=== PATIENT | female | born 1945 | race Caucasian/White ===

== ENCOUNTER 2018-06-26 14:32 | Observation (INO) | payer MEDICARE ==
[2018-06-26 14:59] LABS: #Eosinphils 0.1 thou/uL (0.0-0.7); #Lymphocytes 1.3 thou/uL (1.20-3.40); #Monocytes 0.3 thou/uL (0.11-0.59); #Neutrophils 2.2 thou/uL (1.40-6.50); %Basophils 0.4 % (0.0-1.0); %Monocytes 8.6 % (0.0-10.0); Mean Corpuscular HGB CONC 32.3 g/dL (32.0-36.0); Mean Corpuscular Hemoglobin 28.6 pg (27.0-31.0); Mean Corpuscular Volume 88.8 fL (78.0-98.0); Platelet Count 168 thou/uL (130-400); RBC Distribution Width 12.9 % (11.5-14.5); Red Blood Cell (RBC) Count 4.52 mill/uL (4.20-5.40)
[2018-06-26 15:02] LABS: Analyzer IN Cardio ER; CO2 Tension 43.9 mmHg (35.0-45.0); Calcium, Ionized 1.18 mmol/L (1.12-1.30); Carboxyhemoglobin (COHb) 0.7 gm% (0.0-3.0); Hemoglobin (Hb) 13.5 g/dL (12.0-16.0); O2 Tension (PaO2) 58.8 mmHg (> 70.0); Puncture Site LRA; pH, Arterial 7.42 (7.35-7.45)
[2018-06-26 15:03] LABS: ALV-art Gradient 36.055 (0-20)
[2018-06-26 15:19] LABS: ALT (SGPT) 12 U/L (8-55); AST (SGOT) 14 U/L (5-34); Albumin 3.6 g/dL (3.4-4.8); Alkaline Phosphatase 87 U/L (40-150); Anion Gap 13 mmol/L (10-20); BUN (Urea Nitrogen) 13 mg/dL (9.8-20.1); Bilirubin, Total 0.8 mg/dL (0.2-1.2); CK (CPK) 54 U/L (29-168); Calc. Creatinine Clearance 0 mL/min (70-130); Calcium 9.4 mg/dL (7.8-10.44); Carbon Dioxide 26 mmol/L (23-31); Chloride 104 mmol/L (98-107); Estimated GFR-MDRD 64; Globulin 3.6 g/dL (2.4-3.5); Glucose 96 mg/dL (83-110); Potassium 3.4 mmol/L (3.5-5.1); Protein, Total 7.2 g/dL (6.0-8.3); Sodium 140 mmol/L (136-145)
[2018-06-26 15:23] LABS: CKMB 0.6 ng/mL (0-6.6); Troponin I Less than 0.010 ng/mL (< 0.028)
--- NOTE | 2018-06-26 15:35 | RAD ---
CHEST 1 VIEW: History Chest pain, syncope. COMPARISON: Radiograph 06/01/2016. FINDINGS: Mild fullness of the right hilum. Left lung is relatively clear. Mild tortuosity of the aorta. No pneumothorax. IMPRESSION: Mild fullness in the right hilum. This may be sequelae of distended pulmonary vessels versus a less likely underlying mass. A nonemergent followup CT of the chest may be beneficial. POS: KYRIE
--- NOTE | 2018-06-26 15:38 | CT ---
CT BRAIN NONCONTRAST: HISTORY: A 72-year-old female with dizziness and head injury due to fall. FINDINGS: There is no midline shift or any other mass effect. There is no evidence of acute intracranial hemor rhage, large cortical infarct, obstructive hydrocephalus, or extraaxial fluid collection. The calvar ium is intact. There was a lacunar infarction involving the upper posterior aspect of the left basal ganglia, left periventricular white matter, and perhaps a portion of the caudate, that was demonstra katrina on the MRI of 03/02/2015. It has involuted, and appears less conspicuous than on the CT of 2015. There is diffuse, age-appropriate brain parenchyma volume loss. IMPRESSION: 1. No acute intracranial findings. 2. Tiny old lacunar infarction in the left corpus striatum. ashanti Mcallister POS: KYRIE
--- NOTE | 2018-06-26 16:36 | HP ---
PRIMARY CARE PHYSICIAN: Dr. Michelle Aiken. REASON FOR ADMISSION: Syncope. HISTORY OF PRESENT ILLNESS: A 72-year-old female who has underlying history of hypertension, dyslipi demia on chronic anticoagulation therapy, who was experiencing dizziness recurrently for about 1 week . She fell down on Friday and injured her arm and hip. She only got bruits, but she did not have an y bone pain. She was able to walk without any problem and she was able to use all her upper and lowe r extremity, but she was feeling sore from fall. The patient did not have any chest pain, palpitatio n or shortness of breath. Patient reports that because she was experiencing recurrent dizziness that is why she saw Dr. Loo few days ago and the patient was planned for outpatient stress test and echo cardiography. Patient denies any lower extremity edema or calf tenderness. She denies any pleuritic chest pain. She denies any shortness of breath. She denies any fever or chills. She denies any bl ackout type of vision; however, she denies any tinnitus or vertigo symptoms. REVIEW OF SYSTEMS: The following complete review of systems was negative, unless otherwise mentioned in the HPI or below: Constitutional: Weight loss or gain, ability to conduct usual activities. Sk in: Rash, itching. Eyes: Double vision, pain. ENT/Mouth: Nose bleeding, neck stiffness, pain, te nderness. Cardiovascular: Palpitations, dyspnea on exertion, orthopnea. Respiratory: Shortness of breath, wheezing, cough, hemoptysis, fever or night sweats. Gastrointestinal: Poor appetite, abdom inal pain, heartburn, nausea, vomiting, constipation, or diarrhea. Genitourinary: Urgency, frequenc y, dysuria, nocturia. Musculoskeletal: Pain, swelling. Neurologic/Psychiatric: Anxiety, depressio n. Allergy/Immunologic: Skin rash, bleeding tendency. Please see my HPI for pertinent positive and negative. All other review of systems reviewed and nega tive except as mentioned in the HPI. PAST MEDICAL HISTORY: Paroxysmal atrial fibrillation, chronic anticoagulation, history of ablation i n 2014, hypertension, history of CVA with right-sided weakness, dyslipidemia, coronary artery disease with stent placement. PAST SURGICAL HISTORY: Cardiac catheterization with stent placement, ablation for atrial fibrillatio n, bilateral eye surgery, bladder sling surgery, hysterectomy. PAST PSYCHIATRIC HISTORY: Reviewed and negative. SOCIAL HISTORY: Patient lives at home. No history of tobacco, alcohol or illicit drug abuse. EMERGENCY ROOM COURSE: Patient has received aspirin and IV fluid. FAMILY HISTORY: Hypertension, heart disease runs among several family members. ALLERGIES: No known drug allergy. CURRENT HOME MEDICATIONS: Prinzide 20/25 one tablet p.o. daily, Lipitor 20 mg p.o. at bedtime, Eliqu is 5 mg twice daily, amlodipine 5 mg p.o. daily, aspirin 81 mg p.o. daily. PHYSICAL EXAMINATION: VITAL SIGNS: On arrival, blood pressure 137/80, pulse 79, respiratory rate 18, saturation 93% on brett m air, temperature 98.1, weight 105.2 kilograms. GENERAL: Patient is currently alert, awake, no obvious acute distress. HEAD: Normocephalic, atraumatic. EYES: Pupils round, reactive to light. Extraocular muscle intact. ENT: Oropharynx within normal limits. Moist mucous membranes, no oral lesion, no pharyngeal erythem a, no exudate. NECK: Supple, no JVD, no thyromegaly, no carotid bruit. LUNGS: Clear to auscultation without any rhonchi or rales. CARDIAC: S1, S2 regular without any murmur. ABDOMEN: Soft and benign without any tenderness, obesity present. EXTREMITIES: No edema. Patient does have bruise on the left arm as well as right thigh. Lower extr emity: No edema. Good distal pulsation. NEUROLOGIC: Nonfocal examination. Cerebellar sign normal. Planter bilateral flexor. PSYCHIATRIC: Normal affect. SKIN: No skin rash other than bruits. SIGNIFICANT LABORATORY DATA: EKG showing normal sinus rhythm, atrial premature complexes. CT brain based on my review, old infarct in the left side without any new finding. Chest x-ray based on my re view, no acute cardiopulmonary process. CBC: WBC 4.0, hemoglobin 13.0, platelet 168. D-dimer 0.30. ABG: The pH 7.42, CO2 of 43.9, O2 of 58.8, saturation 91.5. BMP: Sodium 140, potassium 3.4, chlo ride 104, carbon dioxide 26, BUN 13, creatinine 0.87, glucose 96, calcium 9.4. LFT: AST 14, ALT 12, alkaline phosphatase 87, albumin 3.6. Cardiac enzymes negative. BNP 75.1, lipase 18. Prolactin 14 .1. ASSESSMENT: 1. Syncope, unexplained. 2. Recurrent dizziness. 3. Paroxysmal atrial fibrillation. 4. Coronary artery disease with stent. 5. Chronic anticoagulation with Eliquis. 6. Dyslipidemia. 7. Hypertension. 8. Obesity. PLAN: 1. Observation to telemetry floor, orthostatic vitals, echocardiography, pharmacological stress test , lipid profile, TSH, and random cortisol testing tomorrow morning. Resume patient's home medication . 2. DVT prophylaxis not needed because the patient is already on Eliquis therapy. 3. Gastrointestinal prophylaxis. Pepcid 20 mg p.o. b.i.d. 4. Code status: The patient is FULL CODE. Patient's daughter is surrogate decision maker. Disposition plan based on clinical course. We will also rule out acute coronary syndrome with serial cardiac enzymes. Plan of care discussed with the patient's family member at bedside in the emergenc y room.
[2018-06-26] MEDS ORDERED: Ondansetron ODT 4 MG TAB SL PRN (16:46)
[2018-06-26] MEDS ORDERED: Ondansetron PF 4 MG/2 ML Vial IVP PRN ×2 (16:46→17:11)
[2018-06-26 16:55] VITALS: BMI 41.6
[2018-06-26] MEDS ORDERED: Nitroglycerin 0.4 MG TAB (25 Tab Bottle) SL PRN (17:11)
[2018-06-26] MEDS ORDERED: HYDROcodone/Acetaminophen 5/325 mg Tablet PO PRN (17:11)
[2018-06-26] MEDS ORDERED: Ondansetron ODT 4 MG TAB PO PRN (17:11)
[2018-06-26] MEDS ORDERED: Sodium Chloride 0.65% Nasal 44 ML BOT EA NARE PRN (17:11)
[2018-06-26] MEDS ORDERED: Calcium Carbonate 500 MG ChewTAB PO PRN (17:11)
[2018-06-26] MEDS ORDERED: Artificial Tear Sol 15 ML BOT EA EYE PRN (17:11)
[2018-06-26] MEDS ORDERED: Bisacodyl 5 MG TAB PO PRN (17:11)
[2018-06-26] MEDS ORDERED: Acetaminophen 325 MG TAB PO PRN (17:11)
[2018-06-26] MEDS ORDERED: Bisacodyl 10 MG SUPP PR PRN (17:11)
[2018-06-26] MEDS ORDERED: hydrALAZINE 20 MG/ML VIAL SLOW IVP PRN (17:11)
[2018-06-26] MEDS ORDERED: Eucerin (Mineral Oil/Petrolatum,White) 30 gm Jar TOP PRN (17:11)
[2018-06-26] MEDS ORDERED: Diabetic Tussin 200 MG/10 ML UDCUP PO PRN (17:11)
[2018-06-26] MEDS ORDERED: Loperamide HCl 2 MG CAP PO PRN (17:11)
[2018-06-26] MEDS ORDERED: Senokot S 8.6-50 MG TAB PO PRN (17:11)
[2018-06-26] MEDS ORDERED: Zolpidem Tartrate 5 MG TAB PO PRN (17:11)
[2018-06-26] MEDS ORDERED: Cepastat Lozenges 1 LOZ PO PRN (17:11)
[2018-06-26 19:01] LABS: Troponin I Less than 0.010 ng/mL (< 0.028)
[2018-06-26] MEDS: Famotidine 20 MG TAB PO SCH (20:10)
[2018-06-26] MEDS: Apixaban 5 MG TAB PO SCH (20:10)
[2018-06-26] MEDS: Atorvastatin Calcium 20 MG TAB PO SCH (20:11)
[2018-06-26] MEDS: Meclizine HCl 25 MG TAB PO PRN (21:45)
[2018-06-26 22:51] LABS: Troponin I Less than 0.010 ng/mL (< 0.028)
[2018-06-27 05:54] LABS: Cardiac Risk 3.9 (Less than 4.5)
[2018-06-27] MEDS: Meclizine HCl 25 MG TAB PO PRN (06:45)
[2018-06-27] MEDS ORDERED: ADENOSINE 60 MG/20 ML VIAL ONE (08:38)
--- NOTE | 2018-06-27 10:14 | PDOC.PN ---
- Subjective Encounter Start Date: 06/27/18 Encounter Start Time: 07:20 -: old records requested/rev c/o dizziness, monitor is OK, no chest pain - Objective Resuscitation Status: Resuscitation Status FULL:Full Resuscitation MAR Reviewed: Yes Vital Signs & Weight: Vital Signs (12 hours) Temp Pulse Resp BP BP BP BP 06/27/18 08:00 98.2 F 73 16 156/85 H 166/75 H 132/62 06/27/18 03:00 97.9 F 78 18 163/74 H 06/26/18 23:08 98.4 F 78 18 145/65 H Pulse Ox 06/27/18 08:00 94 L 06/27/18 03:00 96 06/26/18 23:08 93 L Weight Weight 233 lb 8 oz I&O: 06/26/18 06/27/18 06/28/18 06:59 06:59 06:59 Intake Total 830 Output Total 1125 Balance -295 Result Diagrams: 06/26/18 14:50 06/26/18 14:50 Additional Labs: Accuchecks 06/26/18 14:50 POC Glucose 90 EKG Reviewed by me: Yes (nsr) Phys Exam - Physical Examination Constitutional: NAD HEENT: PERRLA, moist MMs, sclera anicteric Neck: no JVD, supple Respiratory: no wheezing, no rales, no rhonchi Cardiovascular: RRR, no significant murmur, no rub Gastrointestinal: soft, non-tender, no distention, positive bowel sounds Musculoskeletal: no edema, pulses present Neurological: non-focal, normal sensation, moves all 4 limbs Psychiatric: normal affect, A&O x 3 Skin: no rash, normal turgor Dx/Plan (1) Dizziness and giddiness Code(s): R42 - DIZZINESS AND GIDDINESS Status: Acute (2) Hypokalemia Code(s): E87.6 - HYPOKALEMIA Status: Acute (3) Syncope Code(s): R55 - SYNCOPE AND COLLAPSE Status: Acute (4) Chronic anticoagulation Code(s): Z79.01 - [employer] (CURRENT) USE OF ANTICOAGULANTS Status: Chronic (5) Dyslipidemia Code(s): E78.5 - HYPERLIPIDEMIA, UNSPECIFIED Status: Chronic (6) Hypertension Code(s): I10 - ESSENTIAL (PRIMARY) HYPERTENSION Status: Chronic (7) Obesity, morbid, BMI 40.0-49.9 Code(s): E66.01 - MORBID (SEVERE) OBESITY DUE TO EXCESS CALORIES Status: Chronic (8) PAF (paroxysmal atrial fibrillation) Code(s): I48.0 - PAROXYSMAL ATRIAL FIBRILLATION Status: Chronic - Plan cont current plan of care * today stress test and echo, if negative will consider DC * she may need holter monitoring when she follow up with cardiology * if no cardiac etiolgy, then ENT evaluation * still suspecting orthostatic hypertension, will need adjustment in her BP meds * medication reviewed as below * symptomatic treatment Review of Systems - Review of Systems ENT: negative: Ear Pain, Ear Discharge, Nose Pain, Nose Discharge, Nose Congestion, Mouth Pain, Mouth Swelling, Throat Pain, Throat Swelling, Other Respiratory: negative: Cough, Dry, Shortness of Breath, Hemoptysis, SOB with Excertion, Pleuritic Pain, Sputum, Wheezing Cardiovascular: light headedness. negative: chest pain, palpitations, orthopnea , paroxysmal nocturnal dyspnea, edema, other Gastrointestinal: negative: Nausea, Vomiting, Abdominal Pain, Diarrhea, Constipation, Melena, Hematochezia, Other Genitourinary: negative: Dysuria, Frequency, Incontinence, Hematuria, Retention , Other Musculoskeletal: negative: Neck Pain, Shoulder Pain, Arm Pain, Back Pain, Hand Pain, Leg Pain, Foot Pain, Other Skin: negative: Rash, Lesions, Rui, Bruising, Other - Medications/Allergies Allergies/Adverse Reactions: Allergies Allergy/AdvReac Type Severity Reaction Status Date / Time No Known Allergies Allergy Verified 06/26/18 16:51 Medications: Current Medications Acetaminophen (Tylenol) 650 mg PO Q4H PRN PRN Reason: Headache/Fever/Mild Pain (1-3) Hydrocodone Bitart/Acetaminophen ([place] 5/325) 1 tab PO Q4H PRN PRN Reason: Moderate Pain (4-6) Amlodipine Besylate (Norvasc) 5 mg PO DAILY [facility] Apixaban (Eliquis) 5 mg PO BID [facility] Last Admin: 06/26/18 20:10 Dose: 5 mg Artificial Tears (Tears Renewed 15ml Bottle) 2 drop EA EYE PRN PRN PRN Reason: Dry Eyes Aspirin (Aspirin Chewable) 81 mg PO DAILY [facility] Atorvastatin Calcium (Lipitor) 20 mg PO HS [facility] Last Admin: 06/26/18 20:11 Dose: 20 mg Bisacodyl (Dulcolax) 10 mg PO DAILYPRN PRN PRN Reason: Constipation Bisacodyl (Dulcolax) 10 mg [place] DAILYPRN PRN PRN Reason: Constipation Calcium Carbonate (Tums) 1,000 mg PO Q4H PRN PRN Reason: Heartburn or Indigestion Famotidine (Pepcid) 20 mg PO BID [facility] Last Admin: 06/26/18 20:10 Dose: 20 mg Guaifenesin (Robitussin Sf) 200 mg PO Q4H PRN PRN Reason: Cough Hydralazine HCl (Apresoline) 10 mg SLOW IVP Q4H PRN PRN Reason: SBP > 180 and HR < 70 Loperamide HCl (Imodium) 2 mg PO PRN PRN PRN Reason: Diarrhea/Loose Stools Meclizine HCl (Antivert) 25 mg PO Q8H PRN PRN Reason: Dizziness Last Admin: 06/27/18 06:45 Dose: 25 mg Mineral Oil/White Petrolatum (Eucerin Cream) 0 gm TOP BIDPRN PRN PRN Reason: Dry Skin Nitroglycerin (Nitrostat) 0.4 mg SL Q5MIN PRN PRN Reason: Chest Pain Ondansetron HCl (Zofran Odt) 4 mg PO Q6H PRN PRN Reason: Nausea/Vomiting Ondansetron HCl (Zofran) 4 mg IVP Q6H PRN PRN Reason: Nausea/Vomiting Senna/Docusate Sodium (Senokot S) 2 tab PO BID PRN PRN Reason: Constipation Sodium Chloride ([place] Nasal [employer] 0.65%) 0 ml EA NARE QIDPRN PRN PRN Reason: Nasal Congestion Throat Lozenges (Cepastat Lozenges) 1 angeline PO Q2H PRN PRN Reason: Sore Throat Zolpidem Tartrate (Ambien) 5 mg PO HSPRN PRN PRN Reason: Insomnia
[2018-06-27] MEDS: Famotidine 20 MG TAB PO SCH ×2 (10:41→20:44)
[2018-06-27] MEDS: Amlodipine 5 MG TAB PO SCH (10:42)
[2018-06-27] MEDS: Apixaban 5 MG TAB PO SCH ×2 (10:42→20:44)
[2018-06-27 12:58] LABS: Bilirubin Negative (Negative); Blood, Urine Negative (Negative); Clarity CLOUDY (Clear); Glucose, Urine (Dipstick) Negative (Negative); Leukocyte Large (Negative); Nitrite Negative (Negative); Protein, Urine (Dipstick) Negative (Neg-Trace); Specific Gravity, Urine 1.016 (1.002-1.036)
[2018-06-27] MEDS ORDERED: Ciprofloxacin 500 MG TAB PO SCH (13:45)
[2018-06-27] MEDS: Carvedilol 3.125 MG TAB PO SCH (17:20)
--- NOTE | 2018-06-27 19:30 | CON ---
DATE OF CONSULTATION: 06/27/2018 CARDIOLOGY CONSULTATION INDICATION FOR CONSULTATION: A 72-year-old female with a history of lightheadedness, but no naomy sy ncopal episodes. She does have history of coronary artery disease, hypertension, and atrial fibrilla tion intermittently. She apparently fell on Friday. She became dizzy and fell. Her son helped her to pick her up and then yesterday she had another fall and has presented to the hospital. She had so me ecchymosis and bruising on the right side over her hip area and also in the left flank area. She has some bruising and also on the left arm. She has bruising, but she denied any naomy syncopal epis odes. She had an episode similar to this back in 2014 and was treated with medications which I belie ve was meclizine, but cannot determine by the medical records from the discharge summary what medicin e she was given, but she said that resolved her dizziness and she actually had some medicines at home , but she thought the medicine was too old. At this time, she has been placed back on meclizine, but has not had any benefit yet. She still continues to have some lightheadedness when she gets up out of the bed. Her orthostatics do not indicate that she has any orthostatic hypotension. She has douglas ed any chest pain or shortness of breath. She has no other significant complaints except for the diz ziness with lightheadedness. She had an echocardiogram performed which shows a normal ejection fract ion. There is no indication she has any cardiomyopathy. She does have mild mitral and tricuspid cristobal ve regurgitation. She also has left atrial dilatation, but no significant structural abnormalities f rom a valvular standpoint were noted. She has evidence of mild aortic valve sclerosis and some mild mitral annular calcifications. She has remained in sinus rhythm with occasional PACs and there has b een no indication that her dizziness was cause from a cardiac standpoint unless she perhaps has some mild orthostatic hypotension, but this has not been found to be the case. As far as her past medical history, social history, family history, review of systems, allergies and medications, please refer the notes dictated by the nurse practitioner. PHYSICAL EXAMINATION: GENERAL: Reveals a very pleasant, well-developed, well-nourished female. She is in no acute distres s at this time. She still says she does have some dizziness if she tries to get out of bed, but at t his time, she is sitting on the side of the bed and she has no symptoms at this time. VITAL SIGNS: Showed blood pressure 133/80, heart rate is 80 and regular, respiratory rate 16. She i s afebrile and O2 saturations 94%. HEENT: Shows the head to be normocephalic and atraumatic. Carotid pulses are present. There were n o bruits noted. There is no JVD. The thyroid is not enlarged. Her oral mucosa was pink and moist. CHEST: Clear. There are no rales, rhonchi or wheezing. CARDIOVASCULAR: Exam reveals a regular rate and rhythm with occasional ectopy. I did not hear any g ross murmurs, heaves, thrills, bruits or rubs. ABDOMEN: Soft, nontender. Positive bowel sounds are present. She has obesity. EXTREMITIES: Showed no clubbing, cyanosis or edema. Her pulses are present. NEUROLOGIC: She appears to be intact. I cannot elicit any gross focal motor deficits. LABORATORY DATA: Laboratory data also is within normal limits. Her WBC is 4.0. The hemoglobin is 1 3.0. The potassium is 3.4. Sodium is 140. Her creatinine is 0.87. Her cardiac enzymes are negativ e. Her blood sugar is 90. Her LDL level was 71. IMPRESSION: 1. Elderly female with dizziness of uncertain etiology, does not appear to be cardiac in nature. He r blood pressure has remained stable. She does not have any valvular disease nor any cardiomyopathy that may account for this and there have been no arrhythmias noted. We will see whether or not the m eclizine will improve her symptoms. 2. History of coronary artery disease. She is status post angioplasty and stent placement appears t o be stable. She denied any symptoms. Her EKG does not indicate any ischemia. Cardiac enzymes are negative. Her echocardiogram shows a normal ejection fraction. 3. History of hypercholesterolemia. She will continue on her statin medications. She is taking pola rvastatin 20 mg a day. She has been on oral anticoagulation due to her history of intermittent atria l fibrillation. I would continue this medication. If she continues to have significant falls, we vernell banks need to stop the medication, but I will try to determine whether or not or why she is having the di zziness and see if we can correct this problem. She will be at increased risk of having a CVA should she stopped the medications. She has had ablation in the past and if we need to, then we will stop the anticoagulation and hopefully she can be suppressed with just perhaps beta blockers or calcium bl ockers for atrial fibrillation. Also did not see that she is on a beta casper and given her history of coronary artery disease, this may be advantageous to start her on low dose of beta blockers if sh e is able to tolerate the medication. Otherwise, this also may help some with the dizziness should t his be due to orthostatic hypotension.
[2018-06-27] MEDS: Ciprofloxacin 500 MG TAB PO SCH (20:44)
[2018-06-27] MEDS: Atorvastatin Calcium 20 MG TAB PO SCH (20:44)
[2018-06-28] MEDS: Ciprofloxacin 500 MG TAB PO SCH (07:14)
[2018-06-28 08:01] VITALS: TEMP 98.2
[2018-06-28] MEDS: Amlodipine 5 MG TAB PO SCH (08:14)
[2018-06-28] MEDS: Apixaban 5 MG TAB PO SCH (08:14)
[2018-06-28] MEDS: Carvedilol 3.125 MG TAB PO SCH (08:15)
[2018-06-28] MEDS: Famotidine 20 MG TAB PO SCH (08:15)
--- NOTE | 2018-06-28 09:54 | PDOC.PN ---
- Subjective Encounter Start Date: 06/28/18 Encounter Start Time: 07:15 Patient seen and examined. No new complaints. No overnight events - Objective Resuscitation Status: Resuscitation Status FULL:Full Resuscitation MAR Reviewed: Yes Vital Signs & Weight: Vital Signs (12 hours) Temp Pulse Resp BP BP Pulse Ox 06/28/18 07:24 98.2 F 61 18 151/81 H 95 06/28/18 03:50 98.6 F 73 18 144/72 H 96 06/27/18 23:50 98 F 72 18 123/63 95 Weight Weight 233 lb 8 oz I&O: 06/27/18 06/28/18 06/29/18 06:59 06:59 06:59 Intake Total 830 1200 Output Total 1125 Balance -295 1200 Result Diagrams: 06/26/18 14:50 06/26/18 14:50 Radiology Reviewed by me: Yes EKG Reviewed by me: Yes Phys Exam - Physical Examination Constitutional: NAD HEENT: PERRLA, moist MMs, sclera anicteric Neck: no JVD, supple Respiratory: no wheezing, no rales, no rhonchi Cardiovascular: RRR, no significant murmur, no rub Gastrointestinal: soft, non-tender, no distention, positive bowel sounds Musculoskeletal: no edema, pulses present Neurological: non-focal, normal sensation, moves all 4 limbs Psychiatric: normal affect, A&O x 3 Skin: no rash, normal turgor Dx/Plan (1) Dizziness and giddiness Code(s): R42 - DIZZINESS AND GIDDINESS Status: Acute (2) Hypokalemia Code(s): E87.6 - HYPOKALEMIA Status: Acute (3) Syncope Code(s): R55 - SYNCOPE AND COLLAPSE Status: Acute (4) Chronic anticoagulation Code(s): Z79.01 - SNF (CURRENT) USE OF ANTICOAGULANTS Status: Chronic (5) Dyslipidemia Code(s): E78.5 - HYPERLIPIDEMIA, UNSPECIFIED Status: Chronic (6) Hypertension Code(s): I10 - ESSENTIAL (PRIMARY) HYPERTENSION Status: Chronic (7) Obesity, morbid, BMI 40.0-49.9 Code(s): E66.01 - MORBID (SEVERE) OBESITY DUE TO EXCESS CALORIES Status: Chronic (8) PAF (paroxysmal atrial fibrillation) Code(s): I48.0 - PAROXYSMAL ATRIAL FIBRILLATION Status: Chronic (9) UTI (urinary tract infection) Status: Acute - Plan cont current plan of care, plan discussed w/ family, continue antibiotics * medication reviewed as below * symptomatic treatment * will dc if stress test negative. Review of Systems - Review of Systems ENT: negative: Ear Pain, Ear Discharge, Nose Pain, Nose Discharge, Nose Congestion, Mouth Pain, Mouth Swelling, Throat Pain, Throat Swelling, Other Respiratory: negative: Cough, Dry, Shortness of Breath, Hemoptysis, SOB with Excertion, Pleuritic Pain, Sputum, Wheezing Cardiovascular: negative: chest pain, palpitations, orthopnea, paroxysmal nocturnal dyspnea, edema, light headedness, other Gastrointestinal: negative: Nausea, Vomiting, Abdominal Pain, Diarrhea, Constipation, Melena, Hematochezia, Other Genitourinary: negative: Dysuria, Frequency, Incontinence, Hematuria, Retention , Other Musculoskeletal: negative: Neck Pain, Shoulder Pain, Arm Pain, Back Pain, Hand Pain, Leg Pain, Foot Pain, Other Skin: negative: Rash, Lesions, Rui, Bruising, Other - Medications/Allergies Allergies/Adverse Reactions: Allergies Allergy/AdvReac Type Severity Reaction Status Date / Time No Known Allergies Allergy Verified 06/26/18 16:51 Medications: Current Medications Acetaminophen (Tylenol) 650 mg PO Q4H PRN PRN Reason: Headache/Fever/Mild Pain (1-3) Hydrocodone Bitart/Acetaminophen ([place] 5/325) 1 tab PO Q4H PRN PRN Reason: Moderate Pain (4-6) Amlodipine Besylate (Norvasc) 5 mg PO DAILY [facility] Last Admin: 06/28/18 08:14 Dose: 5 mg Apixaban (Eliquis) 5 mg PO BID [facility] Last Admin: 06/28/18 08:14 Dose: 5 mg Artificial Tears (Tears Renewed 15ml Bottle) 2 drop EA EYE PRN PRN PRN Reason: Dry Eyes Aspirin (Aspirin Chewable) 81 mg PO DAILY [facility] Last Admin: 06/28/18 08:14 Dose: 81 mg Atorvastatin Calcium (Lipitor) 20 mg PO HS [facility] Last Admin: 06/27/18 20:44 Dose: 20 mg Bisacodyl (Dulcolax) 10 mg PO DAILYPRN PRN PRN Reason: Constipation Bisacodyl (Dulcolax) 10 mg [place] DAILYPRN PRN PRN Reason: Constipation Calcium Carbonate (Tums) 1,000 mg PO Q4H PRN PRN Reason: Heartburn or Indigestion Carvedilol (Coreg) 3.125 mg PO BID-[facility] Last Admin: 06/28/18 08:15 Dose: 3.125 mg Ciprofloxacin (Cipro) 500 mg PO 06,1999 [facility] Last Admin: 06/28/18 07:14 Dose: 500 mg Famotidine (Pepcid) 20 mg PO BID [facility] Last Admin: 06/28/18 08:15 Dose: 20 mg Guaifenesin (Robitussin Sf) 200 mg PO Q4H PRN PRN Reason: Cough Hydralazine HCl (Apresoline) 10 mg SLOW IVP Q4H PRN PRN Reason: SBP > 180 and HR < 70 Loperamide HCl (Imodium) 2 mg PO PRN PRN PRN Reason: Diarrhea/Loose Stools Meclizine HCl (Antivert) 25 mg PO Q8H PRN PRN Reason: Dizziness Last Admin: 06/27/18 06:45 Dose: 25 mg Mineral Oil/White Petrolatum (Eucerin Cream) 0 gm TOP BIDPRN PRN PRN Reason: Dry Skin Nitroglycerin (Nitrostat) 0.4 mg SL Q5MIN PRN PRN Reason: Chest Pain Ondansetron HCl (Zofran Odt) 4 mg PO Q6H PRN PRN Reason: Nausea/Vomiting Ondansetron HCl (Zofran) 4 mg IVP Q6H PRN PRN Reason: Nausea/Vomiting Senna/Docusate Sodium (Senokot S) 2 tab PO BID PRN PRN Reason: Constipation Sodium Chloride ([place] Nasal [place] 0.65%) 0 ml EA NARE QIDPRN PRN PRN Reason: Nasal Congestion Throat Lozenges (Cepastat Lozenges) 1 angeline PO Q2H PRN PRN Reason: Sore Throat Zolpidem Tartrate (Ambien) 5 mg PO HSPRN PRN PRN Reason: Insomnia
--- NOTE | 2018-06-28 10:17 | NM ---
CARDIAC SPECT WITH EF AND WALL MOTION: HISTORY: A 72-year-old female with a history of syncope. History of MT, CVA, coronary artery disease, stent, ablation, atrial fibrillation, syncope. The patient was injected with 32.0 mCi Technetium 99m sestamibi intravenously for stress images the p atient was injected with 30.1 mCi Technetium 99m sestamibi intravenously for resting images. This is an adenosine sestamibi study. There is a possible very small focus of reversibility in the basilar portion of the posterior inferio r wall versus slightly technical variation. TID 1.15. LHR 0.35. EDV 62 mL. Ejection fraction is 85%. MYOCARDIAL PERFUSION WALL MOTION: No focal wall motion abnormality. IMPRESSION: Small focus of questionable reversibility versus technical differences in the basilar portion of the inferior posterior wall, I favor this being technique rather than an actual area of focal ischemia. No other significant abnormality. POS: [facility]
--- NOTE | 2018-06-28 11:29 | PDOC.CTH ---
<Federica Houser - Last Filed: 06/28/18 12:56> Cardiology Progress Note - Subjective The pt seen and examined. No overnight events. No cardiac complaints. She cont. having intermittent dizziness, which has improved since yesterday. - Objective Vital Signs Temp Pulse Resp BP BP Pulse Ox 06/28/18 07:24 98.2 F 61 18 151/81 H 95 06/28/18 03:50 98.6 F 73 18 144/72 H 96 06/27/18 23:50 98 F 72 18 123/63 95 Weight 233 lb 8 oz 06/27/18 06/28/18 06/29/18 06:59 06:59 06:59 Intake Total 830 1200 Output Total 1125 Balance -295 1200 - Physical Examination General/Neuro: alert & oriented x3 Neck: no JVD present Lungs: CTA Heart: RRR Abdomen: soft Extremities: other: (No edema) - Telemetry Telemetry Rhythm: SR - Labs Result Diagrams: 06/26/18 14:50 06/26/18 14:50 Troponin/CKMB CK-MB (CK-2) 0.6 ng/mL (0-6.6) 06/26/18 14:50 Troponin I Less than 0.010 ng/mL (< 0.028) 06/26/18 22:17 - Assessment/Plan 1. Dizziness and giddiness - She cont. having spining and sea sick like dizziness. Denied any syncopal episodes. On Meclizine. 2. CAD with hx of stent placement - stable; on Bblocker, ASA, and statin 3. HTN - stable 4. Afib - remains in SR. on Eliquis and BBlocker. 5. UTI - on Cipro PO. managed by PCP 6. Hyperlipidemia - on Statin 7. Obese - weight management education given to the pt. MAR reviewed * Echo on 06/27/18 showed EF 55-60%. * If her stress test is normal, she can be d/eben home. She will f/u with Dr Loo' office within 10 days. <addendum> Stress test showed small reversible ischemia to inferior-lateral area, where she has hx of PCI. Per Dr Loo, ok to d/c home today. Review of Systems - Review of Systems Constitutional: reports: no symptoms reported EENTM: reports: no symptoms reported Respiratory: reports: no symptoms reported Cardiac (ROS): reports: no symptoms reported ABD/GI: reports: no symptoms reported : reports: no symptoms reported <Marie Loo - Last Filed: 06/28/18 20:04> Cardiology Progress Note - Objective Vital Signs Temp Pulse Resp BP Pulse Ox 06/28/18 11:05 98.2 F 69 18 138/75 97 Weight 233 lb 8 oz 06/27/18 06/28/18 06/29/18 06:59 06:59 06:59 Intake Total 830 1200 Output Total 1125 Balance -295 1200 - Labs Result Diagrams: 06/26/18 14:50 06/26/18 14:50 Troponin/CKMB CK-MB (CK-2) 0.6 ng/mL (0-6.6) 06/26/18 14:50 Troponin I Less than 0.010 ng/mL (< 0.028) 06/26/18 22:17 - Assessment/Plan Pt. seen and eval. by me. I agree with the A/P by the CAGE/VAULT SUPERVISOR. We have discussed the pt. and reviewed the test results. She can f/u with me as an outpt.
[2018-06-28 11:40] VITALS: BP 138/75
--- NOTE | 2018-06-28 13:54 | DIS ---
DATE OF ADMISSION: 06/26/2018 DATE OF DISCHARGE: 06/28/2018 PRIMARY CARE PHYSICIAN: Michelle Aiken M.D. DISCHARGE DISPOSITION: Home. PRIMARY DISCHARGE DIAGNOSES: 1. Dizziness and giddiness, unexplained. 2. Hypokalemia, replaced. 3. Syncope, unexplained. 4. Urinary tract infection. SECONDARY DISCHARGE DIAGNOSES: Paroxysmal atrial fibrillation, morbid obesity with BMI 41, hypertens ion, dyslipidemia, chronic anticoagulation. PRIMARY PROCEDURE/OPERATION: None. RADIOLOGICAL INVESTIGATION: Echocardiography showed normal EF. Stress test was essentially normal, reported as possible reversible ischemia, but when we reviewed with the Cardiology, they are thinking that that is related with a scar, which was present in old stress test as well. SIGNIFICANT LABORATORY DATA: WBC 4.0, hemoglobin 13.0, platelet 168,000. D-dimer 0.30. Sodium 140, potassium 3.4, BUN 13, creatinine 0.87. LFT normal. Cardiac enzymes negative. LDL 71. Urinalysis suggestive of UTI. Urine culture grew gram negative rosalio. DISCHARGE MEDICATIONS: Ciprofloxacin 500 mg p.o. b.i.d. for 5 days, meclizine 25 mg q.8. hourly p.r. n., Prinzide 20/25 one tablet p.o. daily, aspirin 81 mg p.o. daily, Eliquis 5 mg p.o. b.i.d., vitamin D3 5000 units p.o. daily, Lipitor 40 mg p.o. daily, amlodipine 5 mg p.o. daily. CONTRAINDICATIONS: None. CODE STATUS: Full code. INPATIENT CONSULTANTS: Dr. Loo was consulted while in hospital. TEST RESULTS PENDING ON DISCHARGE: None. ALLERGIES: No known drug allergies. DISCHARGE PLAN: Post hospital, the patient will follow up with primary care physician in 1 week. [facility] care physician requested to follow up on urine culture result. HOSPITAL COURSE: A 72-year-old female who was admitted by me for dizziness and syncopal episode. He r dizziness was unexplained. She was observed for 24-48 hours in hospital for telemetry, which remai willie unremarkable. She did not have any arrhythmia. We did echocardiography, which was also normal. Her D-dimer was negative. We did a stress test that suspected some reversible finding, but when we discussed with the Cardiology and Cardiology reviewed her old stress test, that was essentially same from previous and agreed with the discharge. The patient had urinary tract infection type of picture and that is why we started ciprofloxacin, tho ugh the patient was not having any UTI symptoms. We prescribed Antivert for her dizziness. The rest of medications, she will continue upon discharge. The patient is seen and examined at bedside today. Please see my progress note from today for furthe r details.
--- NOTE | 2018-06-28 14:41 | CON ---
DATE OF CONSULTATION: 06/27/2018 ROOM #233. PRIMARY CARE DOCTOR: Michelle Aiken M.D. PRIMARY WORM FARMER: Dr. Sahara Loo. REFERRING DOCTOR: Enoch Watts M.D. REASON FOR CARDIOLOGY CONSULTATION: Syncope. HISTORY OF PRESENT ILLNESS: Ms. Fuller is 72-year-old -[place]e female with a significant his tory of coronary artery disease with stent placement, atrial fibrillation and atrial flutter with sev eral ablations and cardioversion, hypertension and CVA. Patient fell on 06/22/2018 because of dizzin ess. Since then, when the patient stands up, patient feels like spinning, is like she has severe ___ __ she has to use a walker, which she normally does not use. Several years ago, she had a similar s ymptom and she used to take some medication to prevent dizziness, which she has not had any more at t his moment. Every time I see gets up, she has a spinning like symptoms and those are the reas ons, patient decided to present to the emergency department and evaluation. Also family member repor katrina that they had to call EMS because she fell at home and nobody could not pick her up. Patient den ies any chest pain or shortness breath, palpitation or fluttering in her chest or discomfort in her c hest, nausea, vomiting or any other cardiac complaints during the episodes. Last episode of the dizz iness was this morning right before she went down for a stress test. Again, room was spinning and it was like she . She had a stress test was done in 06/2017 which was normal. No reversible ischemia with an EF of 83% . The last echo was done in November 2014, which shows EF 60% mild pulmonary valve regurgitation , mild mitral valve regurgitation, and mild tricuspid regurgitation and enlargement of right atrium. Patient had a cardiac catheterization in 2014 with a stent placement in the right coronary arteries and 60% stenosis in LAD, 40% in proximal RCA. She has several procedures for history of atrial fibri llation and atrial flutter. She underwent PVAI in 2016 and atrial flutter, RFA in 2016. Since then, patient had been in a sinus rhythm. Patient's family member reports that sometimes, patient had dizziness when she has UTI which usually patient does not have any symptoms. PAST MEDICAL HISTORY: 1. Hypertension. 2. Hyperlipidemia. 3. Atrial fibrillation. 4. Atrial flutter. 5. Cerebrovascular accident. PAST SURGICAL HISTORY: 1. Status post PVAI x2, the last one in 04/2016. 2. Status post atrial flutter, RFA in 2016. 3. Total hysterectomy. 4. Bilateral eye surgery. 5. Bladder sling surgery. FAMILY HISTORY: Significant family history of hypertension, heart disease in her family. SOCIAL HISTORY: She is living with her daughter. She denies any tobacco, alcohol or illicit drug ab use. She walks around with a walker. ALLERGIES: No known drug allergies. HOME MEDICATIONS: Aspirin 81 mg once a day, amlodipine 5 mg once a day, vitamin D 2000 units once a day, multivitamin once a day, lisinopril/hydrochlorothiazide 20/25 mg once a day, atorvastatin 40 mg once a day, Eliquis 5 mg twice a day. REVIEW OF SYSTEMS: Review of systems was negative, unless otherwise mentioned in the HPI or below. According to the patient's family, patient gained about 30 pounds since last year. PHYSICAL EXAMINATION: VITAL SIGNS: The orthostatic blood pressure supine 132/62, sitting 156/85 and standing is 166/75. H eart rate 73, in sinus rhythm. Temperature 98.2, 94% with room air, respiratory rate 16. GENERAL: Patient is alert, oriented x4, not in acute distress. HEAD: Normocephalic, atraumatic. EYES: Extraocular muscle movement intact. ENT: Oral and nasal mucosa moist without lesion. NECK: No JVD. Neck is supple, normal range of motion. RESPIRATORY: Clear to auscultate bilaterally. CARDIOVASCULAR: Regular rate and rhythm, normal S1, S2. There are no S3, S4, no significant murmur, hives, thrill noted. 2+ pulses in bilateral upper and lower extremities. Carotid pulse present wit hout bruits, or thrill. ABDOMEN: Nontender. No mass to palpate. Bowel sounds are present. MUSCULOSKELETAL: Able to move all extremities. Patient denied claudication. SKIN: Big hematoma to the left upper arm, but other than that no lesions, rash noted. NEUROLOGIC: Alert, oriented x4, nonfocal. PSYCHIATRIC: Normal affect. DIAGNOSTIC DATA: Patient's 12-lead EKG in the ER shows normal sinus rhythm without ST segment change or T-wave inversion. The brain CT shows no acute intracranial finding, tiny old lacunar infarction in the left corpus and a chest x-ray shows no pneumothorax, mild fullness to the right ilium. LABORATORY DATA: WBC 4.0, hemoglobin 13.0, hematocrit 40.2 and platelets 168. Sodium 140, potassium 3.4, BUN 13, creatinine 0.87. AST 14, ALT 12, CK-MB 0.6, troponin less than 0.010 x3. Cholesterol 114, triglycerides 71, HDL 29, LDL 71. ASSESSMENT AND PLAN: 1. Dizziness. Patient reports she never blacked out or loss of conscious. She always has the sympt om of severe spinning like symptom. I do not think that the patient's symptom is from the card iac related and so if patient's stress test is normal today, patient might be able to follow up with ENT as an outpatient. 2. Coronary artery disease with a history of stent placement in 2014. Patient's condition is stable at this moment. No EKG change during this admission. The patient aspirin starting and lisino pril. She is not on beta casper at this moment, but she was not on the beta casper as an outpatien t. 3. Paroxysmal atrial fibrillation and atrial flutter with several ablations. The patient's EKG at t his moment showing a sinus rhythm. She is on Eliquis 5 mg twice a day. 4. Hypertension. The patient's blood pressure is stable. Patient's orthostatic blood pressures hav e been stable also. We would like to continue current medication. 5. Hyperlipidemia. Patient is on atorvastatin 40 mg once a day. 6. Dizziness. Patient is on the meclizine 25 mg once a day. Patient can have this at this moment a nd see whether this medication will work for her, improve her symptoms. Thank you very much for allowing the Cardiology service to participate in care of this patient. We w ill follow along the patient care team and make further recommendation as appropriate. However, most likely if patient's stress test is normal, the patient is going to be discharged today.
== END 2018-06-28 14:05 | disposition home or self-care (01) ==
LOC: ERS 14:32 → 2SW 15:35
PROVIDERS: ADMIT Internal Medicine; ATTEND Internal Medicine
DX: R55 Syncope and collapse (principal); R42 Dizziness and giddiness; S70.11XA Contusion of right thigh, initial encounter; S40.022A Contusion of left upper arm, initial encounter; I10 Essential (primary) hypertension; E78.5 Hyperlipidemia, unspecified; I48.0 Paroxysmal atrial fibrillation; I69.351 Hemiplegia and hemiparesis following cerebral infarction affecting right dominant side; I25.10 Atherosclerotic heart disease of native coronary artery without angina pectoris; E87.6 Hypokalemia; I48.92 Unspecified atrial flutter; I08.0 Rheumatic disorders of both mitral and aortic valves; E78.00 Pure hypercholesterolemia, unspecified; E66.01 Morbid (severe) obesity due to excess calories; Z68.41 Body mass index [BMI] 40.0-44.9, adult; Z79.01 Long term (current) use of anticoagulants; Z79.82 Long term (current) use of aspirin; Z79.899 Other long term (current) drug therapy; Z95.5 Presence of coronary angioplasty implant and graft; W19.XXXA Unspecified fall, initial encounter
CPT/HCPCS: 70450; 71045; 78452; 80053; 80061; 81003; 82550; 82553; 82805; 82962; 83690; 83880; 84146; 84484 ×2; 85025; 85379; 87077; 87086; 87186; 90662; 93005; 93017; 93306; 94760; 96360; 99285; A9500; G0008; G0378 ×2; 36415; 36416; 90471; J0153

== ENCOUNTER 2018-09-17 10:17 | Outpatient (CLI) | payer MEDICARE ==
--- NOTE | 2018-09-17 12:44 | BD ---
BONE DENSITOMETRY USING DEXA: HISTORY: Postmenopausal screening for osteoporosis. FINDINGS: Lumbar Spine: BMD (g/cm2) L1 0.772 T-Score: -2.0 Z-Score: 0.2 L2 0.833 T-Score: -1.8 Z-Score: 0.6 L3 0.823 T-Score: -2.4 Z-Score: 0.1 L4 0.744 T-Score: -2.9 Z-Score: 0.3 L1-L4 0.792 T-Score: -2.3 Z-Score: 0.1 Femoral Neck: 0.712 T-Score: -1.2 Z-Score: 0.8 Total Femur: 0.990 T-Score: 0.4 Z-Score: 2.2 The 10-year fracture risk for a major osteoporotic fracture is 11% and for a hip fracture is 1.9%. Impression: Osteopenia. POS: ALIVIA
== END 2018-09-17 10:18 | disposition home or self-care (01) ==
LOC: BICMAMMO 10:17
PROVIDERS: ATTEND Internal Medicine
DX: Z12.31 Encounter for screening mammogram for malignant neoplasm of breast (principal); Z13.820 Encounter for screening for osteoporosis; Z78.0 Asymptomatic menopausal state
CPT/HCPCS: 77063; 77067; 77080

== ENCOUNTER 2019-08-25 06:01 | Day surgery (SDC) | payer MEDICARE ==
[2019-08-24 13:14] VITALS: BMI 43.0
[2019-08-25] MEDS ORDERED: PROPOFOL 20 ML ONE (07:24)
[2019-08-25 07:31] LABS: #Eosinphils 0.1 thou/uL (0.0-0.7); #Lymphocytes 1.6 thou/uL (1.20-3.40); #Monocytes 0.5 thou/uL (0.11-0.59); #Neutrophils 3.5 thou/uL (1.40-6.50); %Basophils 0.6 % (0.0-1.0); %Eosinophils 1.8 % (0.0-10.0); %Lymphocytes 27.8 % (21.0-51.0); %Neutrophils 61.7 % (42.0-75.0); Hemoglobin 13.4 g/dL (12.0-16.0); Mean Corpuscular Hemoglobin 28.7 pg (27.0-31.0); Mean Corpuscular Volume 89.6 fL (78.0-98.0); Mean Platelet Volume 8.7 fL (7.4-10.4); Platelet Count 180 thou/uL (130-400); RBC Distribution Width 13.2 % (11.5-14.5); Red Blood Cell (RBC) Count 4.66 mill/uL (4.20-5.40); White Blood Cell (WBC) Count 5.6 thou/uL (4.8-10.8)
[2019-08-25 07:45] LABS: INR-International Normal Ratio 1.1; PTT 30.4 SEC (22.9-36.1); Prothrombin Time 14.5 SEC (12.0-14.7)
[2019-08-25 07:46] LABS: Anion Gap 12 mmol/L (10-20); BUN (Urea Nitrogen) 15 mg/dL (9.8-20.1); Calc. Creatinine Clearance 100 mL/min (70-130); Calcium 9.1 mg/dL (7.8-10.44); Carbon Dioxide 28 mmol/L (23-31); Chloride 104 mmol/L (98-107); Estimated GFR-MDRD 68; Glucose 95 mg/dL (83-110); Potassium 3.6 mmol/L (3.5-5.1); Sodium 140 mmol/L (136-145)
[2019-08-25] MEDS ORDERED: PROPOFOL 200 MG/20 ML VIAL ONE (12:05)
--- NOTE | 2019-08-26 22:30 | ECHO ---
DATE OF SERVICE: 08/25/19 REFERRING PHYSICIAN: Dr. Sahara Loo; Dr. Michelle Aiken REASON FOR PROCEDURE: The patient is a 73-year-old female with history of stroke, atrial fibrillation and status post Watch man device placement. Anticoagulation. She is here for a six weeks post Watchman device. PROCEDURE: The patient received propofol by Anesthesia specialist. After adequate level of sedation achieved, a standard transesophageal echocardiogram probe was passed into the esophagus without diff iculty. Patient tolerated the procedure well, no complications noted. RESULTS: Left atrium is mild to moderately dilated. The left atrial appendage is well visualized with an adequ ately seated Watchman device in place. The Watchman device has an adequately seated Watchman device i n place. The Watchman device has soft central echolucency in it but the rest of the appendage seen we ll opacify. Color Doppler reveals three tiny leaks likely due to the mesh work. Does not seem to exte nd beyond the orifice of the appendage into the right sided appendage but inside the Watchman device itself. This would suggest mesh work leak. No pericardial effusion noted. Left ventricular systolic f unction is preserved. Mitral valve has trace regurgitation. The interatrial and atrioventricular sept um is free of defect. No residual flow is seen from left to right atrium from the transseptal punctur e. The right sided chambers are nondilated. The aortic valve has three leaflets without regurgitation or stenosis. Mild tricuspid regurgitation is seen. Pulmonary valve is not well visualized but appears t o be normal. Four out of four pulmonary veins were seen. The visualized portions of the ascending and descending aorta is without aneurysm, dissection or atheroma. CONCLUSION: 1. Good quality GISSELLE. 2. Adequately seated Watchman device with three tiny leaks likely through the mesh work causing some echo lucency inside the Watchman device but most of the left atrial appendage is well opacified. 3. Normal left ventricular systolic function. 4. Mild left atrial enlargement. 5. Mild tricuspid regurgitation. PLAN: Stop anticoagulation and switch to aspirin and Plavix regimen for six months. Would recommend repeat GISSELLE in three months.
== END 2019-08-25 09:35 | disposition home or self-care (01) ==
LOC: CCL 06:01
PROVIDERS: ATTEND Internal Medicine Cardiovascular Disease
PROC: B24BZZ4 Ultrasonography of Heart with Aorta, Transesophageal (ICD-10-PCS; principal; 2019-08-25)
DX: I48.91 Unspecified atrial fibrillation (principal); I10 Essential (primary) hypertension; E78.5 Hyperlipidemia, unspecified; I25.10 Atherosclerotic heart disease of native coronary artery without angina pectoris; M19.90 Unspecified osteoarthritis, unspecified site; Z79.899 Other long term (current) drug therapy; Z86.73 Personal history of transient ischemic attack (TIA), and cerebral infarction without residual deficits; Z95.5 Presence of coronary angioplasty implant and graft
CPT/HCPCS: 36415; 80048; 85025; 85610; 85730; 93005; 93010; 93312; J2704

== ENCOUNTER 2020-01-10 07:27 | Outpatient (CLI) | payer MEDICARE ==
--- NOTE | 2020-01-10 12:25 | CT ---
CTA CHEST: Axial tomograms obtained following an angiogram protocol with multiplanar reconstruction and 3D postp rocessing. INDICATION: Atrial fibrillation. The exam is performed to assess pulmonary vein anatomy for casing material weigher. FINDINGS: Thoracic aorta is well opacified and is unremarkable. No aneurysmal dilatation. No dissection. The pulmonary arteries are well opacified. There is no evidence of pulmonary embolus. Pulmonary veins are opacified. There is a Watchman-type occlusion device in the left atrial appendag e and this appendage is thrombosed. The left superior pulmonary vein is not identified and appears to be absent or occluded. The left in ferior pulmonary vein is patent. Right superior and right inferior pulmonary veins appear patent and unremarkable. The visualized lung montes de oca are clear. No infiltrate or effusion. Images through the upper abdomen s how a distended gallbladder. Densities within the gallbladder lumen suggests small gallstones. Oscar mmend clinical correlation and correlate with gallbladder ultrasound if this has not been evaluated. IMPRESSION: 1. The left superior pulmonary vein is not identified and is either absent or occluded. 2. Pulmonary veins otherwise are patent as described above. 3. Thoracic aorta and pulmonary arteries are unremarkable. 4. Images through the upper abdomen partially image the gallbladder. It is distended and there are densities suggestive of gallstones. Correlate with gallbladder ultrasound as indicated. POS: AGW
[2020-01-10] MEDS ORDERED: Iopamidol-370 76% 500 ML 1 ML ONE (15:32)
== END 2020-01-10 07:28 | disposition home or self-care (01) ==
LOC: BICCT 07:27
PROVIDERS: ATTEND Internal Medicine Cardiovascular Disease
DX: I48.19 Other persistent atrial fibrillation (principal); K82.8 Other specified diseases of gallbladder
CPT/HCPCS: 71275; 82565; Q9967

== ENCOUNTER 2020-07-03 17:16 | Emergency (ER) | payer MEDICARE ==
[2020-07-03] MEDS ORDERED: Oxymetazoline HCl 0.05% (30 ML BOT) ONE (17:48)
--- NOTE | 2020-07-03 17:49 | RAD ---
Chest AP view INDICATION: History of dyspnea COMPARISON: June 26, [address] chest [address] and a CT PE examination dated January 10, 2020 FINDINGS: Lungs: Low lung volumes. Mild interstitial prominence involving both lower lobes is likely reflectiv e of mild subsegmental volume loss. No airspace consolidation is evident. Cardiac silhouette: The cardiomediastinal silhouette appears within normal limits. Pulmonary vasculature: Normal Pleural spaces: No pleural effusion or pneumothorax is demonstrated. Upper abdomen: No abnormality seen. Osseous structures: No acute osseous abnormality. Additional findings: None. IMPRESSION: Low lung volumes with bibasilar atelectasis
--- NOTE | 2020-07-03 18:00 | CT ---
CT Brain WO Con: 07/03/2020 5:49 PM CLINICAL HISTORY: History of hypertension and nose bleeds with altered mental status. IMAGING TECHNIQUE: Multiple CT images were obtained of the brain without IV contrast. COMPARISON: Prior CT of the brain dated June 26, 2018 FINDINGS: BRAIN: Evidence of acute infarct: None. Evidence of chronic ischemic change:There is mild diffuse chronic small vessel white matter ischemic change that appears stable. Evidence of intracranial hemorrhage: None. Evidence of brain volume loss:There is diffuse generalized cerebral and cerebellar atrophy that appea rs stable. Evidence of midline shift: Third ventricle and septum pellucidum are midline. Ventricles: Normal. No hydrocephalus. SKULL: Intact. VISUALIZED PARANASAL SINUSES: There is a mucus retention cyst within the right maxillary sinus. No a ir-fluid level or significant mucosal thickening is demonstrated. MASTOID AIR CELLS: Clear. EXTRACRANIAL SOFT TISSUES: Normal. IMPRESSION: No acute intracranial abnormality.
[2020-07-03 18:08] LABS: #Basophils 0.1 thou/uL (0.0-0.2); #Eosinphils 0.1 thou/uL (0.0-0.7); #Lymphocytes 1.1 thou/uL (1.20-3.40); #Monocytes 0.5 thou/uL (0.11-0.59); #Neutrophils 4.3 thou/uL (1.40-6.50); %Basophils 0.9 % (0.0-1.0); %Lymphocytes 17.9 % (21.0-51.0); %Monocytes 7.8 % (0.0-10.0); %Neutrophils 72.4 % (42.0-75.0); Hemoglobin 13.3 g/dL (12.0-16.0); Mean Corpuscular HGB CONC 31.7 g/dL (32.0-36.0); Mean Corpuscular Hemoglobin 28.3 pg (27.0-31.0); Mean Corpuscular Volume 89.2 fL (78.0-98.0); Mean Platelet Volume 8.3 fL (7.4-10.4); Platelet Count 140 thou/uL (130-400); RBC Distribution Width 13.4 % (11.5-14.5)
[2020-07-03 18:29] LABS: ALT (SGPT) 7 U/L (8-55); AST (SGOT) 13 U/L (5-34); Albumin 3.7 g/dL (3.4-4.8); Alkaline Phosphatase 84 U/L (40-110); Anion Gap 12 mmol/L (10-20); BUN (Urea Nitrogen) 13 mg/dL (9.8-20.1); Bilirubin, Total 1.5 mg/dL (0.2-1.2); Calc. Creatinine Clearance 0 mL/min (70-130); Calcium 8.8 mg/dL (7.8-10.44); Carbon Dioxide 30 mmol/L (23-31); Chloride 99 mmol/L (98-107); Estimated GFR-MDRD 62; Globulin 3.2 g/dL (2.4-3.5); Glucose 99 mg/dL (83-110); Lipase 12 U/L (8-78); Potassium 3.4 mmol/L (3.5-5.1); Protein, Total 6.9 g/dL (6.0-8.3); Sodium 138 mmol/L (136-145)
== END 2020-07-03 19:10 | disposition home or self-care (01) ==
LOC: ERS 17:16
DX: I10 Essential (primary) hypertension (principal); R04.0 Epistaxis; I48.91 Unspecified atrial fibrillation; I49.9 Cardiac arrhythmia, unspecified; E78.5 Hyperlipidemia, unspecified; Z79.899 Other long term (current) drug therapy; Z79.01 Long term (current) use of anticoagulants; Z79.82 Long term (current) use of aspirin; Z86.73 Personal history of transient ischemic attack (TIA), and cerebral infarction without residual deficits
CPT/HCPCS: 36415; 70450; 71045; 80053; 83690; 84484; 85025; 93005

== ENCOUNTER 2020-08-10 12:13 | Outpatient (CLI) | payer MEDICARE ==
--- NOTE | 2020-08-10 13:32 | MMO ---
Bilateral MAMMO Bilat Screen [facility]. CLINICAL HISTORY: Patient is 74 years old and is seen for screening. The patient has no family history of breast cancer. The patient has no personal history of cancer. VIEWS: The views performed were: bilateral craniocaudal with tomosynthesis and bilateral mediolateral oblique with tomosynthesis. FILMS COMPARED: The present examination has been compared to prior imaging studies performed at [facility] on 11/17/2014, 11/21/2015, 12/04/2016 and 09/17/2018. This study has been interpreted with the assistance of computer-aided detection. MAMMOGRAM FINDINGS: There are scattered fibroglandular densities. There is a probable nodular density in the right outer (likely lower) breast. In the left breast, there are no suspicious masses, calcifications or areas of architectural distortion. IMPRESSION: FINDING IN THE RIGHT BREAST REQUIRES ADDITIONAL EVALUATION. SPOT COMPRESSION IS RECOMMENDED. AN ULTRASOUND EXAM IS RECOMMENDED. ADDITIONAL IMAGING. THE RESULTS OF THIS EXAM WERE SENT TO THE PATIENT. ACR BI-RADS Category 0 - Incomplete: Need additional imaging evaluation. [facility] will notify the patient of the need for additional imaging services. MAMMOGRAPHY NOTE: 1. A negative mammogram report should not delay a biopsy if a dominant of clinically suspicious mass is present. 2. Approximately 10% to 15% of breast cancers are not detected by mammography. 3. Adenosis and dense breasts may obscure an underlying neoplasm. Reported by: NOELLE BETTENCOURT MD Electonically Signed: [id number]
== END 2020-08-10 12:14 | disposition home or self-care (01) ==
LOC: BICMAMMO 12:13
PROVIDERS: ATTEND Internal Medicine
DX: Z12.31 Encounter for screening mammogram for malignant neoplasm of breast (principal); R92.2 Inconclusive mammogram
CPT/HCPCS: 77063; 77067

== ENCOUNTER 2020-08-15 10:37 | Outpatient (CLI) | payer MEDICARE ==
--- NOTE | 2020-08-15 11:06 | MMO ---
Right Breast MAMMO Unilat Diag [facility]. CLINICAL HISTORY: Patient is 74 years old and is seen for diagnostic exam. The patient has no family history of breast cancer. The patient has no personal history of cancer. VIEWS: The views performed were: right craniocaudal spot compression with tomosynthesis; right mediolateral oblique spot compression with tomosynthesis; and right mediolateral with tomosynthesis. FILMS COMPARED: The present examination has been compared to prior imaging studies performed at [facility] on 12/04/2016, 09/17/2018, 08/10/2020 and 08/15/2020. This study has been interpreted with the assistance of computer-aided detection. MAMMOGRAM FINDINGS: There are scattered fibroglandular densities. There are no suspicious masses, suspicious calcifications, or new areas of architectural distortion. The asymmetry seen at screening mammography does not persist at additional imaging, compatible with superimposed tissue. IMPRESSION: THERE IS NO MAMMOGRAPHIC EVIDENCE OF MALIGNANCY. A ROUTINE FOLLOW-UP MAMMOGRAM IN 1 YEAR IS RECOMMENDED. THE RESULTS OF THIS EXAM WERE SENT TO THE PATIENT. ACR BI-RADS Category 1 - Negative MAMMOGRAPHY NOTE: 1. A negative mammogram report should not delay a biopsy if a dominant of clinically suspicious mass is present. 2. Approximately 10% to 15% of breast cancers are not detected by mammography. 3. Adenosis and dense breasts may obscure an underlying neoplasm. Reported by: DARLINE ANTHONY MD Electonically Signed: [id number]
== END 2020-08-15 10:38 | disposition home or self-care (01) ==
LOC: BICMAMMO 10:37
PROVIDERS: ATTEND Internal Medicine
DX: R92.2 Inconclusive mammogram (principal)
CPT/HCPCS: 77065; G0279

== ENCOUNTER 2020-10-26 20:59 | Inpatient (IN) | payer MEDICARE ==
[2020-10-26] MEDS ORDERED: Acetaminophen 500 MG TAB ONE (22:14)
[2020-10-26 22:51] LABS: Bacteria/HPF 4+ HPF (None Seen); Bilirubin Negative (Negative); Blood, Urine 1+ (Negative); Clarity Turbid (Clear); Glucose, Urine (Dipstick) Normal (Negative); Ketone, Urine Negative (Negative); Leukocyte 500 Leu/uL (Negative); Nitrite 2+ (Negative); Protein, Urine (Dipstick) 20 mg/dL (Neg-Trace); Squamous Epithelial 0-3 HPF (0-3); WBC/HPF Greater than 50 HPF (0-3); pH, Urine 6.5 (5.0-9.0)
[2020-10-26 22:56] LABS: #Lymphocytes 0.5 thou/uL (1.20-3.40); #Monocytes 0.3 thou/uL (0.11-0.59); #Neutrophils 3.8 thou/uL (1.40-6.50); %Basophils 0.8 % (0.0-1.0); %Eosinophils 0.4 % (0.0-10.0); %Lymphocytes 10.2 % (21.0-51.0); %Monocytes 7.3 % (0.0-10.0); %Neutrophils 81.3 % (42.0-75.0); Hemoglobin 13.1 g/dL (12.0-16.0); Mean Corpuscular HGB CONC 32.9 g/dL (32.0-36.0); Mean Corpuscular Hemoglobin 29.3 pg (27.0-31.0); Mean Corpuscular Volume 89.1 fL (78.0-98.0); Mean Platelet Volume 8.3 fL (7.4-10.4); Platelet Count 142 thou/uL (130-400); Red Blood Cell (RBC) Count 4.48 mill/uL (4.20-5.40); White Blood Cell (WBC) Count 4.6 thou/uL (4.8-10.8)
[2020-10-26 23:14] LABS: ALT (SGPT) 9 U/L (8-55); AST (SGOT) 18 U/L (5-34); Albumin 3.7 g/dL (3.4-4.8); Alkaline Phosphatase 84 U/L (40-110); Anion Gap 14 mmol/L (10-20); BUN (Urea Nitrogen) 13 mg/dL (9.8-20.1); Bilirubin, Total 1.3 mg/dL (0.2-1.2); Calc. Creatinine Clearance 0 mL/min (70-130); Calcium 8.8 mg/dL (7.8-10.44); Carbon Dioxide 25 mmol/L (23-31); Chloride 99 mmol/L (98-107); Globulin 3.7 g/dL (2.4-3.5); Glucose 109 mg/dL (83-110); Potassium 3.9 mmol/L (3.5-5.1); Protein, Total 7.4 g/dL (5.8-8.1); Sodium 134 mmol/L (136-145)
[2020-10-26] MEDS ORDERED: cefTRIAXone\\ROCEPHIN 2 GM VIAL ONE (23:24)
[2020-10-27] MEDS ORDERED: Acetaminophen 325 MG TAB PO PRN (01:15)
[2020-10-27] MEDS ORDERED: Acetaminophen 650 MG Suppository PR PRN (01:15)
[2020-10-27 03:43] VITALS: BMI 44.4
[2020-10-27 04:30] LABS: #Lymphocytes 0.5 thou/uL (1.20-3.40); #Monocytes 0.3 thou/uL (0.11-0.59); #Neutrophils 1.8 thou/uL (1.40-6.50); %Basophils 0.7 % (0.0-1.0); %Eosinophils 0.7 % (0.0-10.0); %Monocytes 11.1 % (0.0-10.0); %Neutrophils 69.5 % (42.0-75.0); Hemoglobin 12.8 g/dL (12.0-16.0); Mean Corpuscular HGB CONC 31.8 g/dL (32.0-36.0); Mean Corpuscular Volume 91.2 fL (78.0-98.0); Mean Platelet Volume 8.3 fL (7.4-10.4); Platelet Count 133 thou/uL (130-400); Red Blood Cell (RBC) Count 4.42 mill/uL (4.20-5.40); White Blood Cell (WBC) Count 2.6 thou/uL (4.8-10.8)
[2020-10-27 04:47] LABS: Lactic Acid 1.1 mmol/L (0.5-2.2)
[2020-10-27 04:50] LABS: Anion Gap 14 mmol/L (10-20); BUN (Urea Nitrogen) 14 mg/dL (9.8-20.1); Calc. Creatinine Clearance 87 mL/min (70-130); Calcium 8.6 mg/dL (7.8-10.44); Carbon Dioxide 23 mmol/L (23-31); Chloride 99 mmol/L (98-107); Glucose 111 mg/dL (83-110); Potassium 3.1 mmol/L (3.5-5.1); Sodium 133 mmol/L (136-145)
[2020-10-27 04:52] LABS: ALT (SGPT) 9 U/L (8-55); AST (SGOT) 14 U/L (5-34); Albumin 3.4 g/dL (3.4-4.8); Alkaline Phosphatase 78 U/L (40-110); Bilirubin, Direct 0.4 mg/dL (0.1-0.3); Bilirubin, Total 0.8 mg/dL (0.2-1.2); Magnesium 1.8 mg/dL (1.6-2.6); Protein, Total 7.1 g/dL (5.8-8.1)
[2020-10-27 09:06] LABS: SARS-CoV-2 PCR by NAA Not Detected (NotDetected)
[2020-10-27] MEDS ORDERED: Magnesium 2 GM/50 ML 2 GM in Premix Bag 1 BAG IVPB SCH (09:45)
[2020-10-27] MEDS: Potassium Chloride 20 MEQ TAB PO SCH ×2 (11:51→15:34)
[2020-10-27] MEDS ORDERED: cefTRIAXone\\ROCEPHIN 1 GM in Sodium Chloride 0.9% 100 ML IVPB SCH (23:00)
[2020-10-28 08:06] VITALS: BP 144/82; TEMP 98.6
[2020-10-28 08:47] LABS: Chloride 104 mmol/L (98-107)
[2020-10-28 08:48] LABS: Calcium 8.1 mg/dL (7.8-10.44); Glucose 87 mg/dL (83-110); Sodium 136 mmol/L (136-145)
[2020-10-28 08:50] LABS: Anion Gap 12 mmol/L (10-20); Carbon Dioxide 24 mmol/L (23-31)
[2020-10-28 08:52] LABS: Calc. Creatinine Clearance 102 mL/min (70-130)
[2020-10-28 08:53] LABS: BUN (Urea Nitrogen) 14 mg/dL (9.8-20.1)
[2020-10-28] MEDS ORDERED: Folic Acid 1 MG TAB PO SCH (09:00)
[2020-10-28] MEDS ORDERED: Aspirin 81 mg Enteric Coated Tablet PO SCH (09:00)
[2020-10-28] MEDS ORDERED: Cholecalciferol 1,000 UNITS (25 MCG) TAB PO SCH (09:00)
[2020-10-28] MEDS ORDERED: Amlodipine 5 MG TAB PO SCH (09:00)
[2020-10-28] MEDS ORDERED: Cyanocobalamin (Vitamin B-12) 1,000 MCG TAB PO SCH (09:00)
[2020-10-28 09:09] LABS: Hemoglobin 12.4 g/dL (12.0-16.0); Mean Corpuscular HGB CONC 32.1 g/dL (32.0-36.0); Mean Corpuscular Hemoglobin 28.9 pg (27.0-31.0); Mean Corpuscular Volume 90.1 fL (78.0-98.0); Platelet Count 129 thou/uL (130-400); RBC Distribution Width 12.9 % (11.5-14.5); Red Blood Cell (RBC) Count 4.28 mill/uL (4.20-5.40); White Blood Cell (WBC) Count 2.3 thou/uL (4.8-10.8)
[2020-10-28 09:16] LABS: Band 7 % (5-11); Eosinophils 4 % (0-10); Lymphocytes 39 % (21-51); MDiff Complete? YES; Monocytes 8 % (0-10); Neutrophil 35 % (42-75); Reactive Lymphocytes 7 % (0-10)
[2020-10-28] MEDS ORDERED: Atorvastatin Calcium 40 MG TAB PO SCH (21:00)
== END 2020-10-28 11:41 | disposition home or self-care (01) | DRG 689 ==
LOC: ERS 20:59 → 2NO 23:45 → T4-B 10-27 21:06
PROVIDERS: ADMIT Internal Medicine; ATTEND Internal Medicine
DX: N39.0 Urinary tract infection, site not specified (principal); G92 Toxic encephalopathy; I69.351 Hemiplegia and hemiparesis following cerebral infarction affecting right dominant side; I48.20 Chronic atrial fibrillation, unspecified; Z68.41 Body mass index [BMI] 40.0-44.9, adult; I13.0 Hypertensive heart and chronic kidney disease with heart failure and stage 1 through stage 4 chronic kidney disease, or unspecified chronic kidney disease; E87.1 Hypo-osmolality and hyponatremia; I50.9 Heart failure, unspecified; E78.5 Hyperlipidemia, unspecified; I07.1 Rheumatic tricuspid insufficiency; I25.10 Atherosclerotic heart disease of native coronary artery without angina pectoris; E66.01 Morbid (severe) obesity due to excess calories; N18.30 Chronic kidney disease, stage 3 unspecified; E87.6 Hypokalemia; D69.6 Thrombocytopenia, unspecified; D72.819 Decreased white blood cell count, unspecified; Z79.82 Long term (current) use of aspirin; Z79.01 Long term (current) use of anticoagulants; Z90.710 Acquired absence of both cervix and uterus; Z95.5 Presence of coronary angioplasty implant and graft; Z82.49 Family history of ischemic heart disease and other diseases of the circulatory system
CPT/HCPCS: 36415; 51701; 70450; 71045; 76856; 80048; 80053; 80076; 81003; 81015; 82140; 83605; 83735; 84484; 85025; 87635; 93005; 96365; J0696; J3475; J3490; U0003; U0005

== ENCOUNTER 2021-06-17 16:34 | Emergency (ER) | payer MEDICARE ==
[2021-06-17 17:50] LABS: #Eosinphils 0.1 thou/uL (0.0-0.7); #Lymphocytes 1.2 thou/uL (1.20-3.40); #Monocytes 0.4 thou/uL (0.11-0.59); #Neutrophils 2.5 thou/uL (1.40-6.50); %Basophils 1.1 % (0.0-1.0); %Eosinophils 2.6 % (0.0-10.0); %Monocytes 10.4 % (0.0-10.0); %Neutrophils 58.9 % (42.0-75.0); Hemoglobin 13.4 g/dL (12.0-16.0); Mean Corpuscular Hemoglobin 30.4 pg (27.0-31.0); Mean Corpuscular Volume 92.1 fL (78.0-98.0); Mean Platelet Volume 8.2 fL (7.4-10.4); Platelet Count 130 thou/uL (130-400); Red Blood Cell (RBC) Count 4.39 mill/uL (4.20-5.40); White Blood Cell (WBC) Count 4.2 thou/uL (4.8-10.8)
[2021-06-17] MEDS ORDERED: Meclizine HCl 25 MG TAB ONE (18:03)
[2021-06-17 18:17] LABS: ALT (SGPT) 17 U/L (8-55); AST (SGOT) 16 U/L (5-34); Albumin 3.4 g/dL (3.4-4.8); Alkaline Phosphatase 79 U/L (40-110); Anion Gap 11 mmol/L (10-20); BUN (Urea Nitrogen) 14 mg/dL (9.8-20.1); Bilirubin, Total 0.8 mg/dL (0.2-1.2); CK (CPK) 29 U/L (29-168); Calc. Creatinine Clearance 0 mL/min (70-130); Calcium 9.6 mg/dL (7.8-10.44); Carbon Dioxide 28 mmol/L (23-31); Chloride 101 mmol/L (98-107); Globulin 3.4 g/dL (2.4-3.5); Glucose 105 mg/dL (83-110); Potassium 3.3 mmol/L (3.5-5.1); Protein, Total 6.8 g/dL (5.8-8.1); Sodium 137 mmol/L (136-145)
[2021-06-17 19:58] LABS: Bilirubin Negative (Negative); Blood, Urine Negative (Negative); Clarity Turbid (Clear); Glucose, Urine (Dipstick) Normal (Negative); Ketone, Urine Negative (Negative); Leukocyte 500 Leu/uL (Negative); Nitrite Negative (Negative); Protein, Urine (Dipstick) Negative (Neg-Trace); RBC/HPF 0-3 HPF (0-3); Specific Gravity, Urine 1.015 (1.002-1.036); Squamous Epithelial 0-3 HPF (0-3); Urobilinogen Normal mg/dL (Less than 2); pH, Urine 6.5 (5.0-9.0)
[2021-06-17 20:07] LABS: WBC/HPF 21-50 HPF (0-3)
[2021-06-17 20:08] LABS: Bacteria/HPF 4+ HPF (None Seen); Renal Epithelial 0-3 HPF (None Seen)
== END 2021-06-17 21:09 | disposition home or self-care (01) ==
LOC: ERS 16:34
DX: N39.0 Urinary tract infection, site not specified (principal); R42 Dizziness and giddiness; I48.91 Unspecified atrial fibrillation; I11.0 Hypertensive heart disease with heart failure; I50.9 Heart failure, unspecified; E78.5 Hyperlipidemia, unspecified; Z79.899 Other long term (current) drug therapy; Z79.82 Long term (current) use of aspirin; Z86.73 Personal history of transient ischemic attack (TIA), and cerebral infarction without residual deficits
CPT/HCPCS: 36415; 51701; 70450; 80053; 81003; 81015; 82550; 83880; 93005; 94760

== ENCOUNTER 2022-02-22 18:54 | Emergency (ER) | payer MEDICARE ==
[2022-02-22] MEDS ORDERED: Ondansetron PF 4 MG/2 ML Vial ONE (19:40)
[2022-02-22] MEDS ORDERED: Morphine 4 MG/ML VIAL ONE (19:40)
[2022-02-22 20:06] LABS: #Eosinphils 0.1 thou/uL (0.0-0.7); #Lymphocytes 1.2 thou/uL (1.20-3.40); #Monocytes 0.7 thou/uL (0.11-0.59); #Neutrophils 4.7 thou/uL (1.40-6.50); %Basophils 0.1 % (0.0-1.0); %Eosinophils 0.9 % (0.0-10.0); %Lymphocytes 18.1 % (21.0-51.0); %Monocytes 10.1 % (0.0-10.0); %Neutrophils 70.8 % (42.0-75.0); Hemoglobin 13.9 g/dL (12.0-16.0); Mean Corpuscular HGB CONC 31.9 g/dL (32.0-36.0); Mean Corpuscular Hemoglobin 29.9 pg (27.0-31.0); Mean Corpuscular Volume 93.7 fL (78.0-98.0); Mean Platelet Volume 8.8 fL (7.4-10.4); Platelet Count 151 thou/uL (130-400); RBC Distribution Width 13.2 % (11.5-14.5); Red Blood Cell (RBC) Count 4.65 mill/uL (4.20-5.40); White Blood Cell (WBC) Count 6.7 thou/uL (4.8-10.8)
[2022-02-22 20:30] LABS: ALT (SGPT) 11 U/L (8-55); AST (SGOT) 26 U/L (5-34); Albumin 3.7 g/dL (3.4-4.8); Alkaline Phosphatase 93 U/L (40-110); Anion Gap 15 mmol/L (10-20); BUN (Urea Nitrogen) 15 mg/dL (9.8-20.1); Bilirubin, Total 1.2 mg/dL (0.2-1.2); Calc. Creatinine Clearance 0 mL/min (70-130); Calcium 9.3 mg/dL (7.8-10.44); Carbon Dioxide 24 mmol/L (23-31); Chloride 100 mmol/L (98-107); Estimated GFR 63; Globulin 4.2 g/dL (2.4-3.5); Glucose 96 mg/dL (83-110); Protein, Total 7.9 g/dL (5.8-8.1); Sodium 135 mmol/L (136-145)
[2022-02-22 23:50] LABS: Bilirubin Negative (Negative); Blood, Urine Trace (Negative); Clarity Turbid (Clear); Glucose, Urine (Dipstick) Normal (Negative); Ketone, Urine Negative (Negative); Leukocyte 500 Leu/uL (Negative); Nitrite 2+ (Negative); Protein, Urine (Dipstick) 20 mg/dL (Neg-Trace); Specific Gravity, Urine 1.026 (1.002-1.036); Urobilinogen Normal mg/dL (Less than 2); pH, Urine 5.5 (5.0-9.0)
[2022-02-23 00:11] LABS: Bacteria/HPF 4+ HPF (None Seen); Squamous Epithelial 0-3 HPF (0-3)
[2022-02-23] MEDS ORDERED: Morphine 4 MG/ML VIAL ONE (00:32)
== END 2022-02-23 02:18 | disposition home or self-care (01) ==
LOC: ERS 18:54
DX: N30.90 Cystitis, unspecified without hematuria (principal); I48.91 Unspecified atrial fibrillation; E78.5 Hyperlipidemia, unspecified; I10 Essential (primary) hypertension; Z86.73 Personal history of transient ischemic attack (TIA), and cerebral infarction without residual deficits; Z79.82 Long term (current) use of aspirin; Z79.899 Other long term (current) drug therapy
CPT/HCPCS: 36415; 80053; 81003; 81015; 83605; 85025; 87040; 93005; 94760; 96374; 96375; 96376; J2270; J2405

== ENCOUNTER 2022-08-12 10:45 | Emergency (ER) | payer OTHER, MEDICARE ==
[2022-08-12 11:49] LABS: ALT (SGPT) Less than 7 U/L (8-55); AST (SGOT) 13 U/L (5-34); Albumin 3.9 g/dL (3.4-4.8); Alkaline Phosphatase 94 U/L (40-110); Anion Gap 11 mmol/L (10-20); BUN (Urea Nitrogen) 10 mg/dL (9.8-20.1); Bilirubin, Total 0.6 mg/dL (0.2-1.2); Calc. Creatinine Clearance 0 mL/min (70-130); Carbon Dioxide 28 mmol/L (23-31); Chloride 104 mmol/L (98-107); Estimated GFR 68; Globulin 3.4 g/dL (2.4-3.5); Glucose 89 mg/dL (83-110); Potassium 3.8 mmol/L (3.5-5.1); Protein, Total 7.3 g/dL (5.8-8.1); Sodium 139 mmol/L (136-145)
[2022-08-12 11:52] LABS: #Eosinphils 0.1 thou/uL (0.0-0.7); #Lymphocytes 1.6 thou/uL (1.20-3.40); #Monocytes 0.4 thou/uL (0.11-0.59); #Neutrophils 3.1 thou/uL (1.40-6.50); %Basophils 0.7 % (0.0-1.0); %Eosinophils 2.6 % (0.0-10.0); %Lymphocytes 30.2 % (21.0-51.0); %Monocytes 8.1 % (0.0-10.0); %Neutrophils 58.3 % (42.0-75.0); Hemoglobin 14.4 g/dL (12.0-16.0); Mean Corpuscular HGB CONC 30.9 g/dL (32.0-36.0); Mean Corpuscular Hemoglobin 28.6 pg (27.0-31.0); Mean Corpuscular Volume 92.4 fl (78.0-98.0); Mean Platelet Volume 8.9 fL (7.4-10.4); Platelet Count 161 10x3/uL (130-400); RBC Distribution Width 13.1 % (11.5-14.5); Red Blood Cell (RBC) Count 5.02 mill/uL (4.20-5.40); White Blood Cell (WBC) Count 5.4 10x3/uL (4.8-10.8)
[2022-08-12 12:26] LABS: Bacteria/HPF 3+ HPF (None Seen); Bilirubin Negative (Negative); Blood, Urine Negative (Negative); Clarity Turbid (Clear); Glucose, Urine (Dipstick) Normal (Negative); Ketone, Urine Negative (Negative); Leukocyte 500 Leu/uL (Negative); Nitrite 2+ (Negative); Protein, Urine (Dipstick) Negative (Neg-Trace); RBC/HPF 0-3 HPF (0-3); Specific Gravity, Urine 1.014 (1.002-1.036); Squamous Epithelial 0-3 HPF (0-3); Urobilinogen Normal mg/dL (Less than 2); WBC/HPF Greater than 50 HPF (0-3)
== END 2022-08-12 13:20 | disposition home or self-care (01) ==
LOC: ERS 10:45
DX: R42 Dizziness and giddiness (principal); N39.0 Urinary tract infection, site not specified; H11.32 Conjunctival hemorrhage, left eye; R29.700 NIHSS score 0; I11.0 Hypertensive heart disease with heart failure; I50.9 Heart failure, unspecified; I48.91 Unspecified atrial fibrillation; E78.00 Pure hypercholesterolemia, unspecified; W01.10XA Fall on same level from slipping, tripping and stumbling with subsequent striking against unspecified object, initial encounter; Z86.73 Personal history of transient ischemic attack (TIA), and cerebral infarction without residual deficits; Z79.82 Long term (current) use of aspirin; Z79.899 Other long term (current) drug therapy
CPT/HCPCS: 36415; 70450; 80053; 81003; 81015; 84484; 85025; 87077; 87086; 87186; 93005

== ENCOUNTER 2022-10-10 09:43 | Outpatient (CLI) | payer MEDICARE | END 2022-10-10 09:44 | disposition home or self-care (01) | LOC: BICMAMMO 09:43 | PROVIDERS: ATTEND Internal Medicine | DX: Z12.31 Encounter for screening mammogram for malignant neoplasm of breast (principal); R92.1 Mammographic calcification found on diagnostic imaging of breast; M81.0 Age-related osteoporosis without current pathological fracture; Z78.0 Asymptomatic menopausal state | CPT/HCPCS: 77063; 77067; 77080 ==

== ENCOUNTER 2023-03-08 13:21 | Observation (INO) | payer MEDICARE ==
[2023-03-08 13:59] LABS: #Eosinphils 0.1 thou/uL (0.0-0.7); #Monocytes 0.5 thou/uL (0.11-0.59); #Neutrophils 4.9 thou/uL (1.40-6.50); %Basophils 0.5 % (0.0-1.0); %Eosinophils 0.9 % (0.0-10.0); %Lymphocytes 13.4 % (21.0-51.0); %Monocytes 8.2 % (0.0-10.0); %Neutrophils 76.7 % (42.0-75.0); Hematocrit 40.5 % (36.0-47.0); Mean Corpuscular HGB CONC 32.1 g/dL (32.0-36.0); Mean Corpuscular Volume 90.4 fl (78.0-98.0); Mean Platelet Volume 10.8 fL (7.4-10.4); Platelet Count 143 10x3/uL (130-400); RBC Distribution Width 14.1 % (11.5-14.5); Red Blood Cell (RBC) Count 4.48 mill/uL (4.20-5.40); White Blood Cell (WBC) Count 6.4 10x3/uL (4.8-10.8)
[2023-03-08 14:28] LABS: ALT (SGPT) 10 U/L (8-55); AST (SGOT) 15 U/L (5-34); Albumin 3.8 g/dL (3.4-4.8); Alkaline Phosphatase 79 U/L (40-110); Anion Gap 13 mmol/L (10-20); BUN (Urea Nitrogen) 12 mg/dL (9.8-20.1); Bilirubin, Total 1.5 mg/dL (0.2-1.2); CK (CPK) 50 U/L (29-168); Calc. Creatinine Clearance 0 mL/min (70-130); Carbon Dioxide 26 mmol/L (23-31); Chloride 101 mmol/L (98-107); Estimated GFR 64; Globulin 3.2 g/dL (2.4-3.5); Glucose 109 mg/dL (83-110); Lipase 12 U/L (8-78); Magnesium 1.8 mg/dL (1.6-2.6); Potassium 3.2 mmol/L (3.5-5.1); Sodium 137 mmol/L (136-145)
[2023-03-08 14:41] LABS: SARS-CoV-2 NAA Rapid Test Not Detected (NotDetected)
[2023-03-08 14:53] LABS: CKMB 0.7 ng/mL (0-6.6)
[2023-03-08] MEDS ORDERED: Aspirin Chewable 81 MG TAB ONE (14:54)
[2023-03-08] MEDS ORDERED: Ondansetron ODT 4 MG TAB PO PRN (15:11)
[2023-03-08] MEDS ORDERED: Ondansetron PF 4 MG/2 ML Vial IVP PRN (15:11)
[2023-03-08] MEDS ORDERED: Potassium Chloride 20 MEQ TAB PO SCH (15:30)
[2023-03-08 17:06] VITALS: BMI 43.4
[2023-03-08 17:27] LABS: Troponin I 0.032 ng/mL (< 0.028)
[2023-03-08 20:36] LABS: Troponin I 0.018 ng/mL (< 0.028)
[2023-03-09 04:01] VITALS: TEMP 98.4
[2023-03-09 05:31] LABS: #Eosinphils 0.1 thou/uL (0.0-0.7); #Monocytes 0.4 thou/uL (0.11-0.59); #Neutrophils 3.5 thou/uL (1.40-6.50); %Basophils 0.4 % (0.0-1.0); %Eosinophils 2.6 % (0.0-10.0); %Lymphocytes 18.5 % (21.0-51.0); %Monocytes 8.8 % (0.0-10.0); %Neutrophils 69.5 % (42.0-75.0); Hematocrit 38.3 % (36.0-47.0); Hemoglobin 12.4 g/dL (12.0-16.0); Mean Corpuscular HGB CONC 32.4 g/dL (32.0-36.0); Mean Corpuscular Hemoglobin 29.3 pg (27.0-31.0); Mean Corpuscular Volume 90.5 fl (78.0-98.0); Mean Platelet Volume 10.6 fL (7.4-10.4); Platelet Count 134 10x3/uL (130-400); RBC Distribution Width 14.1 % (11.5-14.5); Red Blood Cell (RBC) Count 4.23 mill/uL (4.20-5.40)
[2023-03-09 05:56] LABS: Anion Gap 11 mmol/L (10-20); BUN (Urea Nitrogen) 13 mg/dL (9.8-20.1); Calc. Creatinine Clearance 105 mL/min (70-130); Calcium 8.7 mg/dL (7.8-10.44); Carbon Dioxide 26 mmol/L (23-31); Cardiac Risk 3.6 (Less than 4.5); Chloride 106 mmol/L (98-107); Cholesterol 109 mg/dl (< 200 Desired); Estimated GFR 82; Glucose 106 mg/dL (83-110); HDL Cholesterol 30 mg/dL (>60 Neg Risk); LDL Cholesterol, Calculated 70 mg/dL; Potassium 3.6 mmol/L (3.5-5.1); Sodium 139 mmol/L (136-145); Triglycerides 47 mg/dL (Less than 150)
[2023-03-09 08:07] LABS: Anion Gap 11 mmol/L (10-20); BUN (Urea Nitrogen) 13 mg/dL (9.8-20.1); Calc. Creatinine Clearance 105 mL/min (70-130); Calcium 8.6 mg/dL (7.8-10.44); Carbon Dioxide 27 mmol/L (23-31); Chloride 105 mmol/L (98-107); Estimated GFR 82; Glucose 106 mg/dL (83-110); Magnesium 1.8 mg/dL (1.6-2.6); Potassium 3.7 mmol/L (3.5-5.1); Sodium 139 mmol/L (136-145)
[2023-03-09] MEDS ORDERED: Aspirin 81 mg Enteric Coated Tablet PO SCH (09:00)
[2023-03-09] MEDS ORDERED: Cholecalciferol 1,000 UNITS (25 MCG) TAB PO SCH (09:00)
[2023-03-09] MEDS ORDERED: Lisinopril/Hydrochlorothiazide 20/25 mg Tablet PO SCH (09:00)
[2023-03-09] MEDS ORDERED: Amlodipine 5 MG TAB PO SCH (09:00)
[2023-03-09] MEDS ORDERED: Aspirin Chewable 81 MG TAB PO SCH (09:00)
[2023-03-09 09:24] VITALS: BP 168/72
[2023-03-09] MEDS ORDERED: Atorvastatin Calcium 40 MG TAB PO SCH (21:00)
== END 2023-03-09 11:15 | disposition home or self-care (01) ==
LOC: ERS 13:21 → 2SW 15:12
PROVIDERS: ADMIT Family Medicine; ATTEND Family Medicine
DX: J02.9 Acute pharyngitis, unspecified (principal); R77.8 Other specified abnormalities of plasma proteins; E87.6 Hypokalemia; I48.20 Chronic atrial fibrillation, unspecified; E78.5 Hyperlipidemia, unspecified; I25.10 Atherosclerotic heart disease of native coronary artery without angina pectoris; I11.0 Hypertensive heart disease with heart failure; I50.9 Heart failure, unspecified; Z95.818 Presence of other cardiac implants and grafts; Z79.82 Long term (current) use of aspirin; Z79.899 Other long term (current) drug therapy
CPT/HCPCS: 0240U; 71045; 80048 ×2; 80053; 80061; 82550; 82553; 83690; 83735 ×2; 83880; 84484 ×2; 85025 ×2; 87081; 87430; 93005; 99285; G0378 ×3; 36415

== ENCOUNTER 2024-02-13 11:26 | Outpatient (CLI) | payer MEDICARE | END 2024-02-13 11:27 | disposition home or self-care (01) | LOC: BICMAMMO 11:26 | PROVIDERS: ATTEND Internal Medicine | DX: Z12.31 Encounter for screening mammogram for malignant neoplasm of breast (principal) | CPT/HCPCS: 77063; 77067 ==

== ENCOUNTER 2024-08-12 13:53 | Outpatient (CLI) | payer MEDICARE ==
[2024-08-12] MEDS ORDERED: Magnevist 469MG/ML 20 ML VIAL ONE (14:37)
== END 2024-08-12 13:54 | disposition home or self-care (01) ==
LOC: BICMRI 13:53
PROVIDERS: ATTEND Nurse Practitioner Adult Health
DX: G50.0 Trigeminal neuralgia (principal); Z86.73 Personal history of transient ischemic attack (TIA), and cerebral infarction without residual deficits; G93.89 Other specified disorders of brain
CPT/HCPCS: 36415; 70553; 82565

== ENCOUNTER 2025-03-15 09:56 | Outpatient (CLI) | payer MEDICARE | END 2025-03-15 09:57 | disposition home or self-care (01) | LOC: BICMAMMO 09:56 | PROVIDERS: ATTEND Internal Medicine | DX: Z78.0 Asymptomatic menopausal state (principal); M85.89 Other specified disorders of bone density and structure, multiple sites | CPT/HCPCS: 77080 ==